=== PATIENT | female | born 1980 | race Caucasian/White ===

== ENCOUNTER 2017-07-15 17:03 | Emergency (ER) | payer OTHER ==
[~2017-07-15] VITALS: Ht 152.4 cm; Wt 46.7 kg
[2017-07-15 17:41] VITALS: Ht 152.4 cm; Wt 46.7 kg
[2017-07-15 19:31] VITALS: BP 119/65
== END 2017-07-15 19:31 | disposition home or self-care (01) ==
LOC: ED 17:03
DX: K21.9 Gastro-esophageal reflux disease without esophagitis (principal); K29.70 Gastritis, unspecified, without bleeding; F32.9 Major depressive disorder, single episode, unspecified
CPT/HCPCS: Q0162

== ENCOUNTER 2019-02-05 20:06 | Emergency (ER) | payer OTHER ==
[~2019-02-05] VITALS: Ht 152.4 cm; Wt 47.3 kg
[2019-02-05 20:15] VITALS: Ht 152.4 cm; Wt 47.3 kg
[2019-02-05 22:10] VITALS: BP 108/68
== END 2019-02-05 22:15 | disposition home or self-care (01) ==
LOC: ED 20:06
DX: J45.909 Unspecified asthma, uncomplicated (principal); F32.9 Major depressive disorder, single episode, unspecified; Z98.890 Other specified postprocedural states
CPT/HCPCS: J7512; J7613; J7644; Q0092